=== PATIENT | female | born 1965 | race Caucasian/White ===

== ENCOUNTER → 2016-12-16 | Outpatient (CLI) | payer BC | LOC: HEART 5 13:36 | DX: J44.9 Chronic obstructive pulmonary disease, unspecified (principal) | CPT/HCPCS: 94060; 94729 ==

== ENCOUNTER 2022-03-22 15:46 | Inpatient (IN) | payer OTHER ==
[~2022-03-22] VITALS: Ht 165.1 cm; Wt 85.0 kg
[2022-03-22 16:26] LABS: HEMOGLOBIN 16.2 gm/dl (12.3-15.3); RED BLOOD COUNT 5.17 M/UL (4.00-5.10); WHITE BLOOD COUNT 23.5 K/UL (4.5-11.0)
[2022-03-22 17:05] LABS: BUN/CREATININE RATIO 43 (0-10)
[2022-03-22 17:20] LABS: CORONAVIRUS HKU1 Not Detected (Not Detectd); CORONAVIRUS NL63 Not Detected (Not Detectd); CORONAVIRUS OC43 Not Detected (Not Detectd); CORONOAVIRUS 229E Not Detected (Not Detectd); HUMAN METAPNEUMOVIRUS Not Detected (Not Detectd); HUMAN RHINOVIRUS/ENTEROVIRUS Not Detected (Not Detectd); INFLUENZA A Not Detected (Not Detectd)
[2022-03-22 17:21] LABS: BORDETELLA PARAPERTUSSIS Not Detected (Not Detectd); BORDETELLA PERTUSSIS Not Detected (Not Detectd); CHLAMYDIA PNEUMONIAE Not Detected (Not Detectd); INFLUENZA B Not Detected (Not Detectd); MYCOPLASMA PNEUMONIAE Not Detected (Not Detectd); PARAINFLUENZA VIRUS 1 Not Detected (Not Detectd); PARAINFLUENZA VIRUS 2 Not Detected (Not Detectd); PARAINFLUENZA VIRUS 3 Not Detected (Not Detectd); PARAINFLUENZA VIRUS 4 Not Detected (Not Detectd); RESPIRATORY SYNCYTIAL VIRUS Not Detected (Not Detectd)
[2022-03-22 18:25] LABS: SARS-CoV-2 NOT DETECTED (Not Detectd)
[2022-03-22] MEDS ORDERED: DONEPEZIL HCL5 MG PO (18:34)
[2022-03-22] MEDS ORDERED: CYCLOBENZAPRINE10 MG NG (18:34)
[2022-03-22] MEDS ORDERED: CATAPRES 0.1MG0.1 MG PO (18:34)
[2022-03-22] MEDS ORDERED: VITAMIN D21250 MCG PO (18:35)
[2022-03-22] MEDS ORDERED: LISINOPRIL-HCT1 EAC2 PO (18:35)
[2022-03-22] MEDS ORDERED: FUROSEMIDE20 MG PO (18:35)
[2022-03-22] MEDS ORDERED: ESOMEPRAZOLE MA20 MG PO (18:35)
[2022-03-22] MEDS ORDERED: GABAPENTIN800 MG PO (18:35)
[2022-03-22] MEDS ORDERED: MIRTAZAPINE30 MG PO (18:36)
[2022-03-22] MEDS ORDERED: ONDANSETRON HCL4 MG PO (18:36)
[2022-03-22] MEDS ORDERED: LORATADINE10 MG PO (18:36)
[2022-03-22] MEDS ORDERED: QUETIAPINE FUMA50 MG PO (18:36)
[2022-03-22] MEDS ORDERED: TRAZODONE HCL50 MG PO (18:37)
[2022-03-22] MEDS ORDERED: ANORO ELLIPTA1 EACH INH (18:37)
[2022-03-23 05:22] LABS: HEMOGLOBIN 14.5 gm/dl (12.3-15.3); RED BLOOD COUNT 4.69 M/UL (4.00-5.10)
[2022-03-23 11:21] LABS: CANDIDA ALBICANS Not Detected (Negative); CANDIDA KRUSEI Not Detected (Negative); CANDIDA TROPICALIS Not Detected (Negative); ESCHERICHIA COLI Not Detected (Negative); HAEMOPHILUS INFLUENZAE Not Detected (Negative); KLEBSIELLA OXYTOCA Not Detected (Negative); KLEBSIELLA PNEUMONIAE Not Detected (Negative); KPC-CARBAPENEM-RESISTANCE GENE Not Detected (Negative); PROTEUS Not Detected (Negative); PSEUDOMONAS AERUGINOSA Not Detected (Negative); SERRATIA MARCESANS Not Detected (Negative); STAPHYLOCOCCUS AUREUS Not Detected (Negative); STREP AGALACTIAE (GROUP B) Not Detected (Negative); STREP PYOGENES (GROUP A) Not Detected (Negative); STREPTOCOCCUS Not Detected (Negative); vanA/B (VANCOMYCIN RESIST GENE Not Detected (Negative)
[2022-03-23 12:38] LABS: STAPHYLOCOCCUS DETECTED (Negative)
[2022-03-24 05:12] LABS: HEMOGLOBIN 11.8 gm/dl (12.3-15.3); RED BLOOD COUNT 3.85 M/UL (4.00-5.10); WHITE BLOOD COUNT 15.1 K/UL (4.5-11.0)
[2022-03-25 05:05] LABS: BUN/CREATININE RATIO 55 (0-10)
[2022-03-25 09:37] LABS: RED BLOOD COUNT 3.23 M/UL (4.00-5.10); WHITE BLOOD COUNT 12.3 K/UL (4.5-11.0)
[2022-03-25 15:13] LABS: ORGANISM ID Not indicated. (.); SPECIMEN SOURCE Urine (.); STREPTOCOCCUS PNEUMONIAE AG Negative (Negative)
[2022-03-26 07:03] LABS: BUN/CREATININE RATIO 49 (0-10)
[2022-03-26 08:34] LABS: HEMOGLOBIN 10.7 gm/dl (12.3-15.3); RED BLOOD COUNT 3.52 M/UL (4.00-5.10)
[2022-03-27 05:09] LABS: HEMOGLOBIN 11.6 gm/dl (12.3-15.3); RED BLOOD COUNT 3.81 M/UL (4.00-5.10); WHITE BLOOD COUNT 11.9 K/UL (4.5-11.0)
[2022-03-27 05:47] LABS: BUN/CREATININE RATIO 53 (0-10)
[2022-03-28 09:12] LABS: HEMOGLOBIN 11.1 gm/dl (12.3-15.3); RED BLOOD COUNT 3.7 M/UL (4.00-5.10); WHITE BLOOD COUNT 12.5 K/UL (4.5-11.0)
[2022-03-28 09:47] LABS: BUN/CREATININE RATIO 51 (0-10)
[2022-03-29 07:04] LABS: HEMOGLOBIN 11.9 gm/dl (12.3-15.3); RED BLOOD COUNT 3.9 M/UL (4.00-5.10)
[2022-03-29 07:06] LABS: WHITE BLOOD COUNT 7.7 K/UL (4.5-11.0)
[2022-03-29 07:23] LABS: BUN/CREATININE RATIO 62 (0-10)
[2022-03-30 04:52] LABS: HEMOGLOBIN 11.4 gm/dl (12.3-15.3); RED BLOOD COUNT 3.83 M/UL (4.00-5.10); WHITE BLOOD COUNT 6.4 K/UL (4.5-11.0)
[2022-03-30 06:21] LABS: BUN/CREATININE RATIO 47 (0-10)
[2022-04-01 04:18] LABS: HEMOGLOBIN 11.2 gm/dl (12.3-15.3); RED BLOOD COUNT 3.84 M/UL (4.00-5.10); WHITE BLOOD COUNT 7.9 K/UL (4.5-11.0)
[2022-04-01 04:30] LABS: BUN/CREATININE RATIO 45 (0-10)
[2022-04-02 05:19] LABS: HEMOGLOBIN 11.7 gm/dl (12.3-15.3); RED BLOOD COUNT 3.89 M/UL (4.00-5.10); WHITE BLOOD COUNT 9.3 K/UL (4.5-11.0)
[2022-04-02 05:45] LABS: BUN/CREATININE RATIO 44 (0-10)
[2022-04-02] MEDS ORDERED: CATAPRES-TTS 21 EACH TP (11:06)
[2022-04-02] MEDS ORDERED: PROTONIX IV40 MG IV (11:06)
[2022-04-02] MEDS ORDERED: LEVAQUIN I750 MG/150 IV (11:06)
[2022-04-02] MEDS ORDERED: TYLENOL ELIXIR NG (11:06)
[2022-04-02] MEDS ORDERED: MUCOMYST 20% 4 M4 ML NEB (11:06)
[2022-04-02] MEDS ORDERED: QUETIAPINE FUMA25 MG NG (11:06)
[2022-04-02] MEDS ORDERED: ENOXAPARIN40 MG/0.4 SC (11:06)
[2022-04-02] MEDS ORDERED: IPRATROPIU0.2 MG/1 M NEB (11:06)
[2022-04-02] MEDS ORDERED: MULTIVITAM9 MG/15 M1 NG (11:06)
[2022-04-02] MEDS ORDERED: LEVALBUTER1.25 MG/3 NEB (11:06)
[2022-04-02] MEDS ORDERED: HYDRALAZIN20 MG/1 ML IVP (11:06)
== END 2022-04-02 14:21 | DRG 870 ==
LOC: ER1 15:46 → CCU 18:10 → CDU 18:10 → CCU 20:11
PROVIDERS: Family Medicine; Internal Medicine; Internal Medicine Critical Care Medicine; Internal Medicine Infectious Disease; Internal Medicine Nephrology; Preventive Medicine Occupational Medicine; ADMIT Internal Medicine
PROC: 3E03329 Introduction of Other Anti-infective into Peripheral Vein, Percutaneous Approach (ICD-10-PCS; 2022-03-22)
PROC: 0BH17EZ Insertion of Endotracheal Airway into Trachea, Via Natural or Artificial Opening (ICD-10-PCS; 2022-03-22)
PROC: 5A1955Z Respiratory Ventilation, Greater than 96 Consecutive Hours (ICD-10-PCS; 2022-03-22)
PROC: 3E043XZ Introduction of Vasopressor into Central Vein, Percutaneous Approach (ICD-10-PCS; 2022-03-23)
PROC: B24BZZZ Ultrasonography of Heart with Aorta (ICD-10-PCS; 2022-03-24)
PROC: 0DH67UZ Insertion of Feeding Device into Stomach, Via Natural or Artificial Opening (ICD-10-PCS; principal; 2022-03-25)
PROC: 3E0G76Z Introduction of Nutritional Substance into Upper GI, Via Natural or Artificial Opening (ICD-10-PCS; 2022-03-25)
PROC: 5A09357 Assistance with Respiratory Ventilation, Less than 24 Consecutive Hours, Continuous Positive Airway Pressure (ICD-10-PCS; 2022-03-29)
PROC: 5A09357 Assistance with Respiratory Ventilation, Less than 24 Consecutive Hours, Continuous Positive Airway Pressure (ICD-10-PCS; 2022-03-30)
PROC: 5A09357 Assistance with Respiratory Ventilation, Less than 24 Consecutive Hours, Continuous Positive Airway Pressure (ICD-10-PCS; 2022-03-31)
PROC: 5A09357 Assistance with Respiratory Ventilation, Less than 24 Consecutive Hours, Continuous Positive Airway Pressure (ICD-10-PCS; 2022-04-01)
PROC: 5A09357 Assistance with Respiratory Ventilation, Less than 24 Consecutive Hours, Continuous Positive Airway Pressure (ICD-10-PCS; 2022-04-01)
DX: A41.9 Sepsis, unspecified organism (principal); J96.01 Acute respiratory failure with hypoxia; J69.0 Pneumonitis due to inhalation of food and vomit; G92.8 Other toxic encephalopathy; N17.0 Acute kidney failure with tubular necrosis; Z20.822 Contact with and (suspected) exposure to COVID-19; J15.6 Pneumonia due to other Gram-negative bacteria; I63.89 Other cerebral infarction; G93.1 Anoxic brain damage, not elsewhere classified; E87.0 Hyperosmolality and hypernatremia; J44.0 Chronic obstructive pulmonary disease with (acute) lower respiratory infection; Z99.11 Dependence on respirator [ventilator] status; M62.82 Rhabdomyolysis; E87.4 Mixed disorder of acid-base balance; R65.20 Severe sepsis without septic shock; T40.711A Poisoning by cannabis, accidental (unintentional), initial encounter; T42.4X1A Poisoning by benzodiazepines, accidental (unintentional), initial encounter; I10 Essential (primary) hypertension; E78.5 Hyperlipidemia, unspecified; F19.10 Other psychoactive substance abuse, uncomplicated; R00.0 Tachycardia, unspecified; R74.01 Elevation of levels of liver transaminase levels; I08.1 Rheumatic disorders of both mitral and tricuspid valves; F41.1 Generalized anxiety disorder; F17.210 Nicotine dependence, cigarettes, uncomplicated; B95.62 Methicillin resistant Staphylococcus aureus infection as the cause of diseases classified elsewhere; R19.7 Diarrhea, unspecified; E87.6 Hypokalemia; Z99.81 Dependence on supplemental oxygen; Z98.51 Tubal ligation status; Z88.0 Allergy status to penicillin; Z82.49 Family history of ischemic heart disease and other diseases of the circulatory system
CPT/HCPCS: ECHO; 31500; 36415; 36600; 51702; 70450; 71045; 71250; 74018; 80048; 80053; 80061; 80202; 80307; 81001; 82140; 82550; 82553; 82607; 82803; 83036; 83540; 83550; 83605; 83690; 83735; 83880; 84100; 84132; 84300; 84439; 84443; 84478; 84484; 85025; 85610; 85652; 85730; 86140; 87040; 87070; 87077; 87081; 87086; 87150; 87186; 87205; 87278; 87633; 87899; 92526; 92610; 93005; 93306; 94002; 94003; 94640; 94660; 94667; 94668; 94760; 96374; 97110; 97110-GP-CQ; 97162; 97167; 97530; 99285; A6212; C9113; G0480; J0360; J1644; J1650; J1940; J1956; J2185; J2704; J3370; J3411; J3475; J3480; J7030; J7050; J7070; P9047; U0002